=== PATIENT | female | born 1945 | race Caucasian/White ===

== ENCOUNTER → 2017-06-09 | Outpatient (CLI) | payer MEDICARE ==
[2016-06-21 13:43] VITALS: BP 126/67
[~2017-06-09] MED LIST: CALC500T54 PO; GUAI600T47 PO; [UNRECOGNIZED DRUG - CODE] PO
--- NOTE | 2017-06-09 16:45 | KCIC ---
Bone mineral density exam History: Postmenopausal Comparison: None Findings: Bone mineral density examination utilizing DEXA was performed. Left hip bone mineral density of 0.772 g/cm2 corresponds with a T score -1.4, Z score 0.2. The bone mineral density of the lumbar spine was 1.102 g/cm2 which corresponds with a T-score of 0.5 . The age matched Z-score is 2.7 . By World Congress on Osteoporosis criteria, a T score of 0 to-1 SD is considered to be within normal limits. A T score of -1 to -2.5 SD is considered osteopenia. A T score less than -2.5 SD is considered osteoporosis Impression: 1. There is normal bone density of the lumbar spine. Left hip bone mineral density corresponds with osteopenia. Electronically signed by: Ricco Contreras MD (06/09/2017 4:42 PM) [id number]
--- NOTE | 2017-06-09 17:10 | KCIC ---
Bilateral digital screening mammograms: Reason for examination: Routine screening. Comparison is made to previous studies dated 08/15/2015 08/14/2014. The skin and nipples show no abnormalities. No abnormal axillary lymph nodes are seen. The breast parenchyma shows scattered fibroglandular density. (Breast density: Category B.) There are no dominant masses, suspicious calcifications or architectural distortions. Biopsy clip remains present on the left. Impression: No evidence of malignancy. Recommend routine screening. BI-RADS Category 1: Negative. "Our facility is accredited by the [employer] Mammography [employer]." This patient's information has been entered into a reminder system for the patient to be notified with the results of her examination and a target date for the next mammogram. Electronically signed by: Maame Vega MD (06/09/2017 5:07 PM) [id number]
== END ==
LOC: KCIC DEXA 15:07
PROVIDERS: ATTEND Nurse Practitioner Family
DX: Z12.31 Encounter for screening mammogram for malignant neoplasm of breast (principal); M85.88 Other specified disorders of bone density and structure, other site; Z78.0 Asymptomatic menopausal state
CPT/HCPCS: 77080; G0202; 77067

== ENCOUNTER → 2018-01-16 | Outpatient (CLI) | payer MEDICARE | END | disposition home or self-care (01) | LOC: KCIC 09:18 | DX: J40 Bronchitis, not specified as acute or chronic (principal); I51.7 Cardiomegaly | CPT/HCPCS: 71046 ==

== ENCOUNTER → 2019-06-18 | Outpatient (CLI) | payer MEDICARE ==
[2016-06-21 13:43] VITALS: BP 126/67
--- NOTE | 2019-06-18 13:53 | KCIC ---
Bilateral digital screening mammograms: Reason for examination: Routine screening. Comparison is made to previous studies dated 06/09/2017 and 08/15/2015. Interpretation was made with the benefit of CAD. The skin and nipples show no abnormalities. No abnormal axillary lymph nodes are seen. The breast parenchyma shows scattered fibroglandular density. (Breast density: Category B.) There are no dominant masses, suspicious calcifications or architectural distortions. Biopsy clip remains present on the left. Impression: No evidence of malignancy. Recommend routine screening. BI-RADS Category 1: Negative. "Our facility is accredited by the [employer] Mammography [employer]." This patient's information has been entered into a reminder system for the patient to be notified with the results of her examination and a target date for the next mammogram. Electronically signed by: Maame Vega MD (06/18/2019 1:51 PM) [facility]
== END | disposition home or self-care (01) ==
LOC: KCIC MAMMO 13:02
PROVIDERS: ATTEND Nurse Practitioner Family
DX: Z12.31 Encounter for screening mammogram for malignant neoplasm of breast (principal)
CPT/HCPCS: 77067

== ENCOUNTER → 2019-11-02 | Outpatient (CLI) | payer MEDICARE ==
[2016-06-21 13:43] VITALS: BP 126/67
--- NOTE | 2019-11-02 11:48 | CARD ---
MR#: [id number] Date of Study: 11/02/2019 Ordering Physician: ARLETTE VU, Referring Physician: ARLETTE VU, Tech: Ana Mckeon APPROVED REPORT EXAM: Two-dimensional and M-mode echocardiogram with Doppler and color Doppler. Other Information Quality : AverageHR: 85bpm INDICATION Murmur 2D DIMENSIONS RVDd2.3 (2.9-3.5cm)Left Atrium(2D)2.3 (1.6-4.0cm) IVSd0.9 (0.7-1.1cm)Aortic Root(2D)3.1 (2.0-3.7cm) LVDd4.1 (3.9-5.9cm)LVOT Diameter2.1 (1.8-2.4cm) PWd0.8 (0.7-1.1cm)LVDs3.4 (2.5-4.0cm) FS (%) 17.0 %SV27.1 ml LVEF(%)36.0 (>50%) Aortic Valve AoV Peak Chavez.138.1cm/sAoV VTI26.4cm AO Peak GR.7.6mmHgLVOT Peak Chavez.110.7cm/s LVOT VTI 22.56cmAO Mean GR.4mmHg LARS (VMAX)2.06dj7PHH (VTI)3.03cm2 Mitral Valve MV E Jakilmcc73.4cm/sMV DECEL [id number] MV A Septkdog61.3cm/sMV ZSX65hc E/A Ratio0.9MVA (PHT)2.37cm2 TDI E/Lateral E'6.6E/Medial E'6.4 Pulmonary Valve PV Peak Zmfkmfeq32.9cm/sPV Peak Grad.3mmHg Tricuspid Valve TR P. Ncfdhcpz994gk/sRAP UNFDKCBC2suDc TR Peak Gr.63igHgVPSP18zkPt Pulmonary Vein S1 Nqncctwb91.6cm/sD2 Pigrmxut31.1cm/s PVa [id number] LEFT VENTRICLE The left ventricle is normal size. There is normal left ventricular wall thickness. The left ventricu lar systolic function is normal. The Ejection Fraction is 55%. Septal wall motion consistent with con duction abnormality. Transmitral Doppler flow pattern is Grade I-abnormal relaxation pattern. RIGHT VENTRICLE The right ventricle is normal size. There is normal right ventricular wall thickness. The right ventr icular systolic function is normal. ATRIA The left atrium size is normal. The right atrium size is normal. The interatrial septum is intact wit h no evidence for an atrial septal defect or patent foramen ovale as noted on 2-D or Doppler imaging. AORTIC VALVE The aortic valve is calcified but opens well. Doppler and Color Flow revealed no significant aortic r egurgitation. There is no significant aortic valvular stenosis. MITRAL VALVE The mitral valve is normal in structure and function. There is no evidence of mitral valve prolapse. There is no mitral valve stenosis. Doppler and Color Flow revealed no mitral valve regurgitation note d. TRICUSPID VALVE The tricuspid valve is normal in structure and function. Doppler and Color Flow revealed trace tricus pid regurgitation with an estimated PAP of 41 mmHg. There is no tricuspid valve stenosis. PULMONIC VALVE The pulmonic valve is not well visualized. Doppler and Color Flow revealed no pulmonic valvular regur gitation. GREAT VESSELS The aortic root is normal in size. The IVC is normal in size and collapses >50% with inspiration. PERICARDIAL EFFUSION There is no evidence of significant pericardial effusion. Critical Notification Critical Value: No <Conclusion> The left ventricular systolic function is normal. The Ejection Fraction is 55%. Transmitral Doppler flow pattern is Grade I-abnormal relaxation pattern. Trace tricuspid regurgitation with an estimated PAP of 41 mmHg. There is no evidence of significant pericardial effusion. Signed by : Torsten Blankenship, Electronically Approved : 11/02/2019 11:47:49
--- NOTE | 2019-11-02 12:16 | RAD ---
MR#: [id number] Date of Study: 11/02/2019 Ordering Physician: ARLETTE VU, Referring Physician: MARLEN CHUNG Tech: JUANCARLOS Sethi ARRT (R) (N) APPROVED REPORT Test Type: Exercise Stress Nurse/Tech: Catarina Phipps RN Test Indications: Chest pain,shortness of air Cardiac History: Family history Medications: See Electronic Medical Record Medical History: See Electronic Medical Record Resting ECG: SR with BBB and PVCs Resting Heart Rate: 73 bpm Resting Blood Pressure: 136/69mmHg Pretest Chest Pain: No chest pain Nurse/Tech Notes S1,S2 and lungs clear to auscultation. Consent: The procedure was explained to the patient in lay terms. Informed consent was witnessed. Drake eout was entered into [employer]. History and Stress Test performed by JUANCARLOS Sethi ARRT (R) (N) Stress Symptoms Dyspnea POST EXERCISE Reason for Termination: Reached target heart rate Target HR: Yes Max HR: 217 bpm 175% of Maximum Predicted HR: 124 bpm Exercise duration: 6:39 min:sec, 2 Stage Exercise capacity: 7.0METs Max Blood Pressure: 160/64mmHg Blood Pressure response to exercise: Normal blood pressure response during stress. Heart Rate response to exercise: WNL Chest Pain: No. Arrhythmia: Yes. PVCs ST Change: No. INTERPRETATION Stress EKG Conclusion: Baseline EKG showed sinus rhythm. Non-diagnostic changes at peak stress. PVC 's without any significant arrhythmias. Imaging Protocol IMAGE PROTOCOL: Rest Tc-99m/stress Tc-99m 1 day Rest: Stress: Viability: Radiopharm.Tc99m MxeuowdulPp72m Sestamibi Hwop46bAo 31mCi Img Date 11/02/2019 11/02/2019 Inj-Img Tflb25etl. 60min. Rest Admin Site:IV - Left AntecubitalAdministrator:JUANCARLOS Sethi ARRT (R)(N) Stress Admin Site: IV - Left AntecubitalAdministrator: RT Mirian Lewis)(N) STRESS DATA End Diast. Vol.79.0mlLVEDV index BSA52.0ml End Syst. Vol.26.0mlLVESV index BSA17.0ml Myocardial Hgra175.0gEject. Ehnmtojl26.0% Stress Scores Regional WT0.00Summed WT3.00 Regional WM0.00Summed WM0.00 Study quality was good. Left Ventricular size was Normal at Rest and Stress. Lung uptake was . Left Ventricular ejection fraction is 65%. The rest and stress images show normal perfusion, normal contraction and thickening. LV Perf. Quant 17 Seg. SSS0.00 17 Seg. SRS0.00 17 Seg. SDS0.00 Stress Defect Extent (% LAD)0.00Rest Defect Extent (% LAD)0.00Rev. Defect Extent (% LAD)0.00 Stress Defect Extent (% LCX) 6.30Rest Defect Extent (% LCX)0.00Rev. Defect Extent (% LCX)0.00 Stress Defect Extent (% RCA)0.00Rest Defect Extent (% RCA)0.00Rev. Defect Extent (% RCA)0.00 Stress Defect Extent (% GIOVANNI)1.10Rest Defect Extent (% GIOVANNI)0.00Rev. Defect Extent (% GIOVANNI)0.00 Conclusion 1. Treadmill exercise cardioisotope stress test did not show any evidence of ischemia or infarct. 2. Normal left ventricular systolic function with ejection fraction calculated at 65%. 3. Low risk for cardiac events. Signed by : Torsten Blankenship, Electronically Approved : 11/02/2019 12:15:43
== END ==
LOC: NM 07:58
PROVIDERS: ATTEND Internal Medicine Cardiovascular Disease
DX: I35.8 Other nonrheumatic aortic valve disorders (principal); E78.00 Pure hypercholesterolemia, unspecified; M19.90 Unspecified osteoarthritis, unspecified site
CPT/HCPCS: 78452; 93017; 93306; A9500

== ENCOUNTER → 2020-04-03 | Outpatient (CLI) | payer MEDICARE ==
[2016-06-21 13:43] VITALS: BP 126/67
--- NOTE | 2020-04-03 10:02 | RAD ---
Chest radiograph 04/03/2020 12:00 AM INDICATION: Shortness of air COMPARISON: 01/16/2018 TECHNIQUE: Frontal and lateral views of the chest are provided. FINDINGS: The cardiomediastinal silhouette is within normal limits. There are no pleural effusions. There is no pulmonary vascular congestion. There is no pneumothorax. The lungs are clear. No significant osseous abnormality is identified. IMPRESSION: No acute cardiopulmonary process. Electronically signed by: Jaquelin Rogers MD (04/03/2020 9:59 AM) [id number]
== END ==
LOC: RAD 09:29
PROVIDERS: ATTEND Internal Medicine Pulmonary Disease
DX: R06.02 Shortness of breath (principal)
CPT/HCPCS: 71046

== ENCOUNTER → 2020-08-21 | Outpatient (CLI) | payer MEDICARE ==
[2016-06-21 13:43] VITALS: BP 126/67
--- NOTE | 2020-08-21 10:19 | KCIC ---
EXAM: Bilateral digital screening mammogram with tomosynthesis. HISTORY: 75-year-old female presents for screening mammography. TECHNIQUE: Full-field digital craniocaudal and mediolateral oblique 2D and 3D tomosynthesis images of both breasts are obtained for evaluation. Computer aided detection with ServiceMaxD software version 9.3 was applied. COMPARISON: 06/18/2019 and 06/09/2017 BREAST PARENCHYMAL DENSITY: Level B - Scattered fibroglandular densities. FINDINGS: There is no new suspicious mass, microcalcification or region of architectural distortion. There is stable areas of asymmetry within both breasts. There is a metallic clip within the lateral left breast. IMPRESSION: BI-RADS Category 2: Benign finding(s). RECOMMENDATION: Annual mammography is recommended. If your mammogram demonstrates that you have dense breast tissue, which could hide abnormalities, and if you have other risk factors for breast cancer that have been identified, you might benefit from supplemental screening tests that may be suggested by your ordering physician. Dense breast tissue, in and of itself, is a relatively common condition. This information is not provided to cause undue concern, but rather to raise your awareness and to promote discussion with your physician regarding the presence of other risk factors, in addition to dense breast tissue. A report of your mammography results will be sent to you and your physician. You should contact your physician if you have any questions or concerns regarding this report. Mammography is a sensitive method for finding small breast cancers, but it does not detect them all and is not a substitute for careful clinical examination. A negative mammogram does not negate a clinically suspicious finding and should not result in delay in biopsying a clinically suspicious abnormality. PQRS compliance statement - Patient information was entered into a reminder system with a target due date for the next mammogram. "Our facility is accredited by the [employer] Mammography [employer]." Electronically signed by: Leena Noonan MD (08/21/2020 10:17 AM) [email or web address]
== END | disposition home or self-care (01) ==
LOC: KCIC MAMMO 08:59
PROVIDERS: ATTEND Nurse Practitioner Family
DX: Z12.31 Encounter for screening mammogram for malignant neoplasm of breast (principal)
CPT/HCPCS: 77063; 77067

== ENCOUNTER → 2021-08-12 | Outpatient (CLI) | payer MEDICARE ==
[2016-06-21 13:43] VITALS: BP 126/67
--- NOTE | 2021-08-12 11:02 | RAD ---
EXAM: Chest, 2 views. HISTORY: Shortness of air. COMPARISON: 04/03/2020 FINDINGS: 2 views of the chest are obtained. There is hyperinflation likely due to emphysema. There i s a stable prominent cardiac silhouette. There is no consolidation, pleural effusion or pneumothorax. There is stable suspected bilateral infrahilar atelectasis or scarring. IMPRESSION: No acute pulmonary finding. Suspected emphysema. Electronically signed by: Leena Noonan MD (08/12/2021 11:00 AM) [facility]
== END ==
LOC: RAD 10:34
PROVIDERS: ATTEND Internal Medicine Pulmonary Disease
DX: R06.02 Shortness of breath (principal)
CPT/HCPCS: 71046

== ENCOUNTER → 2021-09-01 | Outpatient (CLI) | payer MEDICARE ==
[2016-06-21 13:43] VITALS: BP 126/67
--- NOTE | 2021-09-01 11:08 | KCIC ---
Bilateral digital screening mammograms with 3-D tomosynthesis: Reason for examination: Routine screening. Comparison is made to previous studies dated back to 08/14/2014. Bilateral mammograms in CC and oblique projections were obtained with 2-D imaging and 3-D tomosynthes is imaging on a Siemens Inspiration unit and reviewed on the workstation. Interpretation was made wit h the benefit of CAD. The skin and nipples show no abnormalities. No abnormal axillary lymph nodes are seen. The breast par enchyma shows scattered fatty and fibroglandular density. (Breast density: Category B.) There are no dominant masses, suspicious calcifications or architectural distortion. Biopsy clip is present on the left. Impression: No evidence of malignancy. Recommend routine screening. BI-RAD Category 1: Negative. "Our facility is accredited by the [employer] Mammography [employer]." This patient's information has been entered into a reminder system for the patient to be notified wit h the results of her examination and a target date for the next mammogram. Electronically signed by: Maame Vega MD (09/01/2021 11:06 AM) [email or web address]
== END ==
LOC: KCIC MAMMO 10:09
PROVIDERS: ATTEND Nurse Practitioner Family
DX: Z12.31 Encounter for screening mammogram for malignant neoplasm of breast (principal)
CPT/HCPCS: 77063; 77067